=== PATIENT | male | born 1955 | race Caucasian/White ===

== ENCOUNTER → 2016-12-13 | Outpatient (CLI) | payer OTHER ==
[~2016-12-13] MED LIST: CHOL100010 PO; MULT-506 PO; OMEG10007 PO; SIMV40TA2 PO
== END | disposition home or self-care (01) ==
LOC: C.PATHSPEC 16:35
PROVIDERS: ATTEND Dermatology
DX: C43.62 Malignant melanoma of left upper limb, including shoulder (principal); L85.8 Other specified epidermal thickening

== ENCOUNTER → 2016-12-15 | Outpatient (CLI) | payer OTHER ==
[2016-12-15 12:37] LABS: BASO % 0.6 %; BASO ABS # 0.03 K/uL (0-0.2); COMPLETE YES; EOS % 1.4 %; HEMATOCRIT 40.7 % (42-52); IG% 0.2 %; LYMPH % 42.7 %; MEAN CELL VOLUME 89.1 fL (80-100); MEAN CORPUSCULAR HEMOGLOBIN 31.5 pg (25-34); MEAN CORPUSCULAR HGB CONC 35.4 g/dl (32-36); MEAN PLATELET VOLUME 10.1 fL (7.4-10.4); MONO % 6.6 %; NEUT % 48.5 %; PLATELET COUNT 194 K/uL (130-400); RED BLOOD COUNT 4.57 M/uL (4.7-6.1); WHITE BLOOD COUNT 5.15 K/uL (4.8-10.8)
[2016-12-15 12:40] LABS: URINE APPEARANCE CLEAR (CLEAR); URINE BILIRUBIN NEG (NEG); URINE COLOR DK YELLOW; URINE EPITHELIAL CELL AUTO >30 /lpf (0-5); URINE NITRITE NEG (NEG); URINE SPECIFIC GRAVITY 1.027 (1.000-1.030); UROBILINOGEN NEG (NEG)
[2016-12-15 12:48] LABS: MANUAL MICROSCOPIC REQUIRED? NO; REVIEW REQ? NO
[2016-12-15 13:02] LABS: CHOLESTEROL/HDL RATIO 2.9; PROSTATE SPECIFIC ANTIGEN 0.242 ng/ml (0.000-4.000)
[2016-12-15 13:06] LABS: ESTIMATED AVERAGE GLUCOSE 100 mg/dl; HA1C FLAG Normal (Normal)
== END | disposition home or self-care (01) ==
LOC: C.LAB 10:46
PROVIDERS: ATTEND Internal Medicine
DX: E78.00 Pure hypercholesterolemia, unspecified (principal); R31.9 Hematuria, unspecified; R36.1 Hematospermia; E78.5 Hyperlipidemia, unspecified